=== PATIENT | female | born 1985 | race Caucasian/White ===

== ENCOUNTER 2021-07-04 12:31 | Inpatient (IN) | payer BC ==
[~2021-07-04] VITALS: Ht 170.2 cm; Wt 97.5 kg
[~2021-07-04 12:31] MED LIST: COLACE 100MG C100 MG PO; FERROUS SULFAT325 M1 PO; IBUPROFEN600 MG PO; NORCO 5-325 TA1 EACH PO
[2021-07-07 07:08] LABS: RED BLOOD COUNT 3.91 M/UL (4.00-5.10); WHITE BLOOD COUNT 8.7 K/UL (4.5-11.0)
[2021-07-08 04:59] LABS: HEMOGLOBIN 10.2 gm/dl (12.3-15.3)
== END 2021-07-08 18:01 | disposition home or self-care (01) | DRG 807 ==
LOC: LBRF 12:31 → OB 07-07 05:39
PROVIDERS: ADMIT Obstetrics & Gynecology
PROC: 10E0XZZ Delivery of Products of Conception, External Approach (ICD-10-PCS; principal; 2021-07-07)
PROC: 10907ZC Drainage of Amniotic Fluid, Therapeutic from Products of Conception, Via Natural or Artificial Opening (ICD-10-PCS; 2021-07-07)
PROC: 4A1HXCZ Monitoring of Products of Conception, Cardiac Rate, External Approach (ICD-10-PCS; 2021-07-07)
PROC: 0W8NXZZ Division of Female Perineum, External Approach (ICD-10-PCS; 2021-07-07)
DX: O76 Abnormality in fetal heart rate and rhythm complicating labor and delivery (principal); Z37.0 Single live birth; Z20.822 Contact with and (suspected) exposure to COVID-19; Z3A.39 39 weeks gestation of pregnancy; Z86.73 Personal history of transient ischemic attack (TIA), and cerebral infarction without residual deficits; Z91.018 Allergy to other foods
CPT/HCPCS: 36415; 81001; 82800; 85014; 85018; 85025; J2405; J7120; U0003